=== PATIENT | female | born 1995 | race Caucasian/White ===

== ENCOUNTER → 2017-06-21 | Outpatient (CLI) | payer OTHER ==
[~2017-06-21] MED LIST: AMOX500 PO; BUSP5 PO; CEPH500 PO; CODACEE120 PO; CRUTCH4 USE; IBUP600 PO; METPHE5 PO; MULVITMINE PO; Macrobid 100 M100 MG PO; NAPR500 PO; OXYACE5T PO; PENVK250 PO; PROM25 PO; PSYL5.85P PO; Percocet 5-3251 EACH PO; RXCODACESY PO; Sprintec1 EACH; TRAM50 PO; Veetids 500500 MG PO; Verotin-Gr Cap1 EACH PO; Zofran Odt8 MG SL; [UNRECOGNIZED DRUG - REMARK]
[2017-06-21 15:18] LABS: Specimen Source URIN
[2017-06-21 21:03] LABS: G. vaginalis (DNA Probe) Positive (NEGATIVE); T. vaginalis (DNA Probe) Negative (NEGATIVE)
[2017-06-21 21:04] LABS: Candida species (DNA Probe) Positive (NEGATIVE)
[2017-06-22 12:31] LABS: Source URIN
== END | disposition home or self-care (01) ==
LOC: LAB 13:30 → LAB SHORT 13:30
PROVIDERS: Physician Assistant
DX: Z11.3 Encounter for screening for infections with a predominantly sexual mode of transmission (principal); L29.8 Other pruritus
CPT/HCPCS: 87480; 87491; 87510; 87591; 87660

== ENCOUNTER → 2017-09-05 | Outpatient (CLI) | payer OTHER ==
[2017-09-08 02:17] LABS: CHLAMYDIA TRACHOMATIS, NAA Negative (Negative); NEISSERIA GONORRHOEAE, NAA Negative (Negative)
== END | disposition home or self-care (01) ==
LOC: LAB SHORT 16:17 → OLS 16:17
PROVIDERS: Nurse Practitioner Women's Health
DX: Z11.3 Encounter for screening for infections with a predominantly sexual mode of transmission (principal); Z12.4 Encounter for screening for malignant neoplasm of cervix
CPT/HCPCS: 87491; 87591; 87624; G0123

== ENCOUNTER → 2017-10-05 | Outpatient (CLI) | payer BC ==
[2017-10-05 13:37] LABS: BASOPHILS ABSOLUTE AUTO 0.04 K/mm3 (0.00-0.23); BASOPHILS PERCENT AUTO 1 % (0-2); EOSINOPHILS ABSOLUTE AUTO 0.34 K/mm3 (0.00-0.68); EOSINOPHILS PERCENT AUTO 5 % (0-6); Hematocrit 38.9 % (33.0-51.0); Hemoglobin 13.3 g/dL (11.5-16.0); IMMATURE GRAN ABSOLUTE AUTO 0.02 K/mm3 (0.00-0.10); IMMATURE GRAN PERCENT AUTO 0 % (0-1); LYMPHOCYTES ABSOLUTE AUTO 2.17 K/mm3 (0.84-5.20); LYMPHOCYTES PERCENT AUTO 30 % (21-46); MONOCYTES ABSOLUTE AUTO 0.49 K/mm3 (0.16-1.47); MONOCYTES PERCENT AUTO 7 % (4-13); Mean Corpuscular HGB 31.1 pg (26.0-34.0); Mean Corpuscular HGB Conc 34.2 g/dL (31.5-36.5); Mean Corpuscular Volume 91 fL (80-100); Mean Platelet Volume 12.2 fL (9.1-12.4); NEUTROPHILS ABSOLUTE AUTO 4.25 K/mm3 (1.96-9.15); NEUTROPHILS PERCENT AUTO 58 % (41-73); Platelet Count 192 K/mm3 (150-400); RDW Coefficient Variation 12.2 % (11.7-14.2); RDW Standard Deviation 40.4 fL (35.1-46.3); Red Blood Cell Count 4.27 M/mm3 (3.80-5.20); White Blood Cell Count 7.31 K/mm3 (4.00-11.30)
[2017-10-05 14:05] LABS: Alanine Aminotransfer (ALT/SGP 23 U/L (12-78); Albumin/Globulin Ratio 1.1 (0.8-1.8); Alk Phos 77 U/L (50-136); Anion Gap 7 mmol/L (6-16); Aspartate Aminotrans (AST/SGOT 18 U/L (12-37); Bilirubin, Total 0.8 mg/dL (0.1-1.0); Blood Urea Nitrogen 12 mg/dL (8-24); Bun/Creatinine Ratio 15.5 (12.0-20.0); CO2, Blood 25 mmol/L (21-32); Calcium, Blood 9.1 mg/dL (8.5-10.1); Chloride, Blood 109 mmol/L (98-108); Creatinine, Blood 0.77 mg/dL (0.40-1.00); Globulin, Blood 3.7 g/dL (2.2-4.0); Glomerular Filtration Rate >60 (60-); Glucose, Blood 87 mg/dL (70-99); Potassium, Blood 4.1 mmol/L (3.5-5.5); Sodium, Blood 141 mmol/L (136-145); Total Protein, Blood 7.7 g/dL (6.4-8.2)
[2017-10-06 08:52] LABS: Adenovirus F 40/41 Not Detected (NOT DETECT); Astrovirus Not Detected (NOT DETECT); Campylobacter Sp Not Detected (NOT DETECT); Cryptosporidium Not Detected (NOT DETECT); Cyclospora Cayetanensis Not Detected (NOT DETECT); E. Coli O157 Not Detected (NOT DETECT); Entamoeba Histolytica Not Detected (NOT DETECT); Enteroaggregative E. coli-EAEC Not Detected (NOT DETECT); Enteropathogenic E. coli-EPEC Not Detected (NOT DETECT); Enterotoxigenic E. coli-ETEC Not Detected (NOT DETECT); Giardia Lamblia Not Detected (NOT DETECT); Norovirus GI/GII Not Detected (NOT DETECT); Plesiomonas Shigelloides Not Detected (NOT DETECT); Rotavirus A Not Detected (NOT DETECT); Salmonella Sp Not Detected (NOT DETECT); Sapovirus Not Detected (NOT DETECT); Shiga Toxin-prod E. coli-STEC Not Detected (NOT DETECT); Shigella/Enteroin E. coli-EIEC Not Detected (NOT DETECT); Vibrio Cholerae Not Detected (NOT DETECT); Vibrio Sp Not Detected (NOT DETECT); Yersinia Enterocolitica Not Detected (NOT DETECT)
== END ==
LOC: LAB 12:30 → LAB SHORT 12:30
PROVIDERS: Family Medicine
DX: R19.7 Diarrhea, unspecified (principal)
CPT/HCPCS: 80053; 85025; 85651; 87507

== ENCOUNTER → 2018-03-27 | Outpatient (CLI) | payer SELFPAY ==
[2018-03-30 03:11] LABS: CHLAMYDIA TRACHOMATIS, NAA Positive (Negative); NEISSERIA GONORRHOEAE, NAA Negative (Negative)
== END | disposition home or self-care (01) ==
LOC: LAB 18:03 → LAB SHORT 18:03
PROVIDERS: Nurse Practitioner Women's Health
DX: Z11.3 Encounter for screening for infections with a predominantly sexual mode of transmission (principal); N89.8 Other specified noninflammatory disorders of vagina
CPT/HCPCS: 87070; 87205; 87491; 87591

== ENCOUNTER → 2018-07-13 | Outpatient (CLI) | payer OTHER ==
[2018-07-15 03:09] LABS: CHLAMYDIA TRACHOMATIS, NAA Positive (Negative); NEISSERIA GONORRHOEAE, NAA Negative (Negative)
== END | disposition home or self-care (01) ==
LOC: LAB SHORT 12:47 → LAB 12:47
PROVIDERS: Nurse Practitioner Women's Health
DX: A56.09 Other chlamydial infection of lower genitourinary tract (principal)
CPT/HCPCS: 87491; 87591

== ENCOUNTER → 2018-10-19 | Outpatient (CLI) | payer OTHER ==
[2018-10-21 01:06] LABS: CHLAMYDIA TRACHOMATIS, NAA Negative (Negative); NEISSERIA GONORRHOEAE, NAA Negative (Negative)
== END | disposition home or self-care (01) ==
LOC: LAB SHORT 14:21 → LAB 14:21
PROVIDERS: Obstetrics & Gynecology
DX: Z11.3 Encounter for screening for infections with a predominantly sexual mode of transmission (principal)
CPT/HCPCS: 87491; 87591

== ENCOUNTER 2018-11-13 08:06 | Emergency (ER) | payer OTHER ==
[~2018-11-13] VITALS: Ht 162.6 cm; Wt 71.2 kg
[2018-11-13 09:45] LABS: Calcium, Ionized (POC) 1.18 mmol/L (1.10-1.46); Chloride (POC) 107 mmol/L (98-108); Creatinine (POC) 0.4 mg/dL (0.6-1.0); Glucose (ISTAT POC) 71 mg/dL (70-99); Hemoglobin (POC) 12.9 g/dL (12.0-16.0); Potassium (POC) 4.1 mmol/L (3.5-5.5); Sodium (POC) 137 mmol/L (135-148); Total CO2 (POC) 21 mmol/L (21-32)
[2018-11-13 10:10] LABS: Calcium, Ionized (POC) 1.17 mmol/L (1.10-1.46); Chloride (POC) 108 mmol/L (98-108); Creatinine (POC) 0.4 mg/dL (0.6-1.0); Glucose (ISTAT POC) 75 mg/dL (70-99); Hemoglobin (POC) 11.2 g/dL (12.0-16.0); Potassium (POC) 3.7 mmol/L (3.5-5.5); Sodium (POC) 138 mmol/L (135-148); Total CO2 (POC) 20 mmol/L (21-32)
== END 2018-11-13 10:38 | disposition home or self-care (01) ==
LOC: ER 08:06
PROVIDERS: Emergency Medicine
DX: O99.89 Other specified diseases and conditions complicating pregnancy, childbirth and the puerperium (principal); R55 Syncope and collapse; O99.342 Other mental disorders complicating pregnancy, second trimester; F32.9 Major depressive disorder, single episode, unspecified; F41.9 Anxiety disorder, unspecified; Z3A.16 16 weeks gestation of pregnancy; Z79.899 Other long term (current) drug therapy
CPT/HCPCS: 36415; 80047; 85014; 93005; 93010; 99284-25

== ENCOUNTER → 2019-04-04 | Outpatient (CLI) | payer OTHER | LOC: LAB 09:40 → LAB SHORT 09:40 | DX: Z34.93 Encounter for supervision of normal pregnancy, unspecified, third trimester (principal) | CPT/HCPCS: 87081; 87653 ==

== ENCOUNTER 2019-04-19 15:54 | Inpatient (IN) | payer OTHER ==
[~2019-04-19] VITALS: Ht 162.6 cm; Wt 83.0 kg
[2019-04-19 11:22] LABS: BASOPHILS ABSOLUTE AUTO 0.02 K/mm3 (0.00-0.23); BASOPHILS PERCENT AUTO 0 % (0-2); EOSINOPHILS ABSOLUTE AUTO 0.07 K/mm3 (0.00-0.68); EOSINOPHILS PERCENT AUTO 1 % (0-6); Hemoglobin 12.1 g/dL (11.5-16.0); IMMATURE GRAN ABSOLUTE AUTO 0.03 K/mm3 (0.00-0.10); IMMATURE GRAN PERCENT AUTO 0 % (0-1); LYMPHOCYTES ABSOLUTE AUTO 1.44 K/mm3 (0.84-5.20); LYMPHOCYTES PERCENT AUTO 19 % (21-46); MONOCYTES ABSOLUTE AUTO 0.34 K/mm3 (0.16-1.47); MONOCYTES PERCENT AUTO 5 % (4-13); Mean Corpuscular HGB 30.9 pg (26.0-34.0); Mean Corpuscular HGB Conc 32.7 g/dL (31.5-36.5); Mean Corpuscular Volume 94 fL (80-100); Mean Platelet Volume 12.5 fL (9.1-12.4); NEUTROPHILS ABSOLUTE AUTO 5.55 K/mm3 (1.96-9.15); NEUTROPHILS PERCENT AUTO 75 % (41-73); Platelet Count 108 K/mm3 (150-400); RDW Coefficient Variation 14.6 % (11.7-14.2); RDW Standard Deviation 50.5 fL (35.1-46.3); Red Blood Cell Count 3.92 M/mm3 (3.80-5.20); White Blood Cell Count 7.45 K/mm3 (4.00-11.30)
[~2019-04-19 15:54] MED LIST changes: +FERSU300 PO; +OMEP20ER PO
--- NOTE | 2019-04-20 11:19 | NUR ---
04/20/19 1119 Blake Howard DELIVERY OF VIABLE FEMALE INFANT AT 1058. CORD BLOOD COLLECTED AND GIVEN TO Gonzalo GANRER RN. SEE ANETHESIA AND SUMMARIES.
--- NOTE | 2019-04-20 12:05 | NUR ---
PT TO PACU FROM OR. PRIMARY FOR BREECH AND LEFT OVARY REMOVED R/T OVARIAN CYST. PT AWAKE, DENIES PAIN. NO COMPLAINTS. FUNDAL MASSAGE- FIRM WITH SCANT LOCHIA. PLACED ON MOM, SKIN TO SKIN AND TO BREASTFEED.
--- NOTE | 2019-04-20 12:46 | NUR ---
[facility]ANA CARE. MEDIPORE C/D/I. LIGHT LOCHIA. PT BF WELL
--- NOTE | 2019-04-20 22:49 | NUR ---
URINE OUTPUT- 150CC EMPTIED FROM CATHETER. UPDATED ROLL HANDLERLOVELY PRUITT ON CONTINUED MINIMAL OUTPUT. PLAN TO ENCOURAGE PT TO DRINK PLENTY OF FLUID. PT UPDATED ON PLAN AND STATES UNDERSTANDING.
[2019-04-21 05:41] LABS: Hematocrit 28.7 % (33.0-51.0); Hemoglobin 9.5 g/dL (11.5-16.0); Mean Corpuscular HGB 30.9 pg (26.0-34.0); Mean Corpuscular HGB Conc 33.1 g/dL (31.5-36.5); Mean Corpuscular Volume 94 fL (80-100); Platelet Count 98 K/mm3 (150-400); RDW Coefficient Variation 14.5 % (11.7-14.2); RDW Standard Deviation 49.3 fL (35.1-46.3); Red Blood Cell Count 3.07 M/mm3 (3.80-5.20); White Blood Cell Count 10.12 K/mm3 (4.00-11.30)
[2019-04-21 05:46] LABS: Mean Platelet Volume 13.1 fL (9.1-12.4)
--- NOTE | 2019-04-22 13:41 | NUR ---
RX SCRIPT RN GAVE RX SCRIPT TO PT. PT SENDING TO FILL PRESCRIPTION.
--- NOTE | 2019-04-22 14:11 | NUR ---
DISCHARG INSTRUCTIONS RN EDUCATED PT ON DISCHARGE INSTRUCTIONS FOR CARE AND CARE. PT VERBALIZED UNDERSTANDING.PT DENIES ANY QUESTIONS OR CONCERNS. RN EDUCATED PT ABOUT FOLLOW UP APT FOR 2-3-20 AT 1300. PT VERBALIZED UNDERSTANDING. PT DENIES ANY NEEDS AT THIS TIME. PT WAITING FOR TO GET BACK WITH CARSEAT TO DISCHARGE FROM UNIT.
--- NOTE | 2019-04-22 15:25 | NUR ---
DISCHARGED PT AND NB DISCHARGED, PT SECURED INFANT IN CARRIER. PT, NB AND AMBULATED OUT OF UNIT WITH ALL BELONGINS AND DISCHARGE INSTRUCTIONS. PT DENIES ANY QUESTIONS OR CONCERNS.
--- NOTE | 2019-04-22 15:28 | NUR ---
RN WALKED OUT OF THE UNIT TO CAR WITH PT, NB AND FOB
== END 2019-04-22 15:20 | disposition home or self-care (01) | DRG 785 ==
LOC: BC 04-20 08:31 → EDBD 04-22 15:20
PROVIDERS: ADMIT Obstetrics & Gynecology
PROC: 0UT10ZZ Resection of Left Ovary, Open Approach (ICD-10-PCS; 2019-04-20)
PROC: 10D00Z1 Extraction of Products of Conception, Low, Open Approach (ICD-10-PCS; principal; 2019-04-20 10:30)
PROC: 0UT60ZZ Resection of Left Fallopian Tube, Open Approach (ICD-10-PCS; 2019-04-20 10:30)
DX: O32.1XX0 Maternal care for breech presentation, not applicable or unspecified (principal); O34.83 Maternal care for other abnormalities of pelvic organs, third trimester; N83.202 Unspecified ovarian cyst, left side; Z3A.39 39 weeks gestation of pregnancy; Z37.0 Single live birth
CPT/HCPCS: 36415; 85025; 85027; 86850; 86900; 86901; 90707; J0690; J1885; J2210; J2370; J2405; J2590; J2765; J3010; J7120

== ENCOUNTER → 2020-02-11 | Outpatient (CLI) | payer OTHER ==
[2020-02-15 08:55] LABS: CHLAMYDIA TRACHOMATIS, NAA Negative (Negative)
== END | disposition home or self-care (01) ==
LOC: LAB 15:30 → LAB SHORT 15:30
PROVIDERS: Obstetrics & Gynecology
DX: Z01.419 Encounter for gynecological examination (general) (routine) without abnormal findings (principal); Z11.3 Encounter for screening for infections with a predominantly sexual mode of transmission
CPT/HCPCS: 87491; 87591; G0123

== ENCOUNTER → 2020-07-11 | Outpatient (CLI) | payer OTHER ==
[2020-07-12 08:32] LABS: G. vaginalis (DNA Probe) Positive (NEGATIVE); T. vaginalis (DNA Probe) Negative (NEGATIVE)
[2020-07-12 08:33] LABS: Candida species (DNA Probe) Negative (NEGATIVE)
== END | disposition home or self-care (01) ==
LOC: LAB SHORT 10:15
PROVIDERS: Obstetrics & Gynecology
DX: N89.8 Other specified noninflammatory disorders of vagina (principal)
CPT/HCPCS: 87480; 87510; 87660

== ENCOUNTER 2020-08-11 07:31 | Inpatient (IN) | payer OTHER ==
[~2020-08-11] VITALS: Ht 162.6 cm; Wt 92.9 kg
[~2020-08-11 07:31] MED LIST changes: +Lantus100 UNIT/1; +ONDA4ODT MM
[2020-08-11 08:00] LABS: BASOPHILS ABSOLUTE AUTO 0.05 K/mm3 (0.00-0.23); BASOPHILS PERCENT AUTO 1 % (0-2); EOSINOPHILS ABSOLUTE AUTO 0.19 K/mm3 (0.00-0.68); EOSINOPHILS PERCENT AUTO 2 % (0-6); Hematocrit 33.2 % (33.0-51.0); Hemoglobin 10.6 g/dL (11.5-16.0); IMMATURE GRAN ABSOLUTE AUTO 0.09 K/mm3 (0.00-0.10); IMMATURE GRAN PERCENT AUTO 1 % (0-1); LYMPHOCYTES ABSOLUTE AUTO 1.93 K/mm3 (0.84-5.20); LYMPHOCYTES PERCENT AUTO 20 % (21-46); MONOCYTES ABSOLUTE AUTO 0.53 K/mm3 (0.16-1.47); MONOCYTES PERCENT AUTO 5 % (4-13); Mean Corpuscular HGB 26.1 pg (26.0-34.0); Mean Corpuscular HGB Conc 31.9 g/dL (31.5-36.5); Mean Corpuscular Volume 82 fL (80-100); NEUTROPHILS ABSOLUTE AUTO 6.98 K/mm3 (1.96-9.15); NEUTROPHILS PERCENT AUTO 72 % (41-73); Platelet Count 114 K/mm3 (150-400); RDW Coefficient Variation 18.8 % (11.7-14.2); RDW Standard Deviation 55.9 fL (35.1-46.3); Red Blood Cell Count 4.06 M/mm3 (3.80-5.20); White Blood Cell Count 9.77 K/mm3 (4.00-11.30)
--- NOTE | 2020-08-11 11:08 | NUR ---
08/11/20 1108 Deborah Gil 1000 DELIVERY TWIN BABY A 2715GM 6#, HEAD 13 INCHES, CHEST 12.2 INCHES, LENGTH 18 INCHES, APGARS 9/9, UMBILICAL CORD BLOOD COLLECTED LABELED BABY A BY Doris GARNER RN, 1001 DELIVERY TWIN BABY B 3485GM 7# 11 OZ, HEAD 13.5 INCHES, CHEST 14.5 INCHES, LENGTH 20 INCHES, 9/9, UMBILICAL CORD BLOOD COLLECTED LABELED BABY B BY Doris GARNER RN, PLACENTA- TWIN A LABELED BY Doris GARNER RN SENT TO PATHOLOGY, TWIN B LABELED ALONG WITH 2 UMBILICAL CORD CLAMPS ON CORD SEGMENT SENT TO PATHOLOGY.
--- NOTE | 2020-08-11 11:25 | NUR ---
SECOND LARGE CLOT EXPRESSED WITH MASSAGE. MD NOTIFIED, ORDER FOR ADDITIONAL DOSE OF METHERGINE IM GIVEN. PITOCIN STARTED AT 500CC/HR. WILL CONTINUE TO MONITOR
--- NOTE | 2020-08-11 13:13 | NUR ---
Assumed care from Bushra Churchill RN
--- NOTE | 2020-08-12 00:29 | NUR ---
PT IS FOUND WITH BED IN THE HIGH POSITION. SHE HAS BEEN ADVISED BY HER PRIMARY RN THAT THIS IS UNSAFE AND BED IS LOWERED FOR SAFETY.
[2020-08-12 05:46] LABS: Hematocrit 24.7 % (33.0-51.0); Hemoglobin 7.8 g/dL (11.5-16.0); Mean Corpuscular HGB 26.2 pg (26.0-34.0); Mean Corpuscular HGB Conc 31.6 g/dL (31.5-36.5); Mean Corpuscular Volume 83 fL (80-100); Platelet Count 81 K/mm3 (150-400); RDW Coefficient Variation 18.9 % (11.7-14.2); RDW Standard Deviation 56.3 fL (35.1-46.3); Red Blood Cell Count 2.98 M/mm3 (3.80-5.20); White Blood Cell Count 9.94 K/mm3 (4.00-11.30)
[2020-08-12 06:08] LABS: Anion Gap 6 mmol/L (6-16); Blood Urea Nitrogen 6 mg/dL (8-24); CO2, Blood 21 mmol/L (21-32); Calcium, Blood 7.6 mg/dL (8.5-10.1); Chloride, Blood 111 mmol/L (98-108); Creatinine, Blood 0.67 mg/dL (0.40-1.00); Glomerular Filtration Rate >60 (60-); Glucose, Blood 73 mg/dL (70-99); Potassium, Blood 3.8 mmol/L (3.5-5.5); Sodium, Blood 138 mmol/L (136-145)
--- NOTE | 2020-08-12 10:39 | NUR ---
INCISION SITE COVERED. SOME OLD DRAINAGE. WILL REMOVE WITH SHOWER.
--- NOTE | 2020-08-12 11:07 | NUR ---
VOIDED IN SHOWER, DRESSING OFF SITE WNL
--- NOTE | 2020-08-12 11:16 | NUR ---
agree with student assessment with student entire time
--- NOTE | 2020-08-12 17:06 | NUR ---
AGREE WITH STUDENT CARE, WITH BENITA DAY ENTIRE SHIFT
--- NOTE | 2020-08-12 18:24 | NUR ---
AGREE WITH SHAY STUDENT NURSE ASSESSMENT AND CARE FOR THE DAY WITH HER FOR ENTIRE SHIFT
[2020-08-13] MEDS ORDERED: OXYC5 PO (11:06)
[2020-08-13] MEDS ORDERED: IBUP800 PO (11:06)
== END 2020-08-13 13:10 | disposition home or self-care (01) | DRG 785 ==
LOC: BC 07:31
PROVIDERS: Obstetrics & Gynecology; ADMIT Obstetrics & Gynecology
PROC: 10D00Z1 Extraction of Products of Conception, Low, Open Approach (ICD-10-PCS; principal; 2020-08-11 09:30)
PROC: 0UB50ZZ Excision of Right Fallopian Tube, Open Approach (ICD-10-PCS; 2020-08-11 09:30)
DX: O32.1XX1 Maternal care for breech presentation, fetus 1 (principal); O34.211 Maternal care for low transverse scar from previous cesarean delivery; O30.043 Twin pregnancy, dichorionic/diamniotic, third trimester; O24.424 Gestational diabetes mellitus in childbirth, insulin controlled; K43.9 Ventral hernia without obstruction or gangrene; O99.62 Diseases of the digestive system complicating childbirth; Z3A.37 37 weeks gestation of pregnancy; Z30.2 Encounter for sterilization; Z37.0 Single live birth; Z37.2 Twins, both liveborn
CPT/HCPCS: 36415; 80048; 82947; 85025; 85027; 86850; 86900; 86901; 88302; 88307; A9270; J0690; J1885; J2210; J2370; J2405; J2590; J2765; J3010; J7120; J7121

== ENCOUNTER 2022-08-23 09:41 | Day surgery (SDC) | payer OTHER ==
[~2022-08-23] VITALS: Ht 162.6 cm; Wt 62.2 kg
[2022-08-23] VITALS (14 sets, daily range): BP systolic 114–130; BP diastolic 73–96
[~2022-08-23 09:41] MED LIST changes: +ALBU90OI INH; +AMPDEX30CR PO; +BUTALB-CAFF-AC1 EACH PO; +CELECOXIB PO; +DICL75ER PO; +GABA300 PO; +IBUP800 PO; +LAMOTRIGINE25 M3 PO; +ONDA4 PO; +OXYC5 PO; +TIZANIDINE HCL211 PO; +TRAMADOL PO
--- NOTE | 2022-08-23 10:47 | NUR ---
History, Chart, Medications and Allergies reviewed before start of procedure. Lungs clear T/O to Auscultation. Patient confirms NPO status and agrees with scheduled surgery. Pre-Op teaching done. Pt verbalizes understanding. Patient reports completing Chlorhexadine shower X2 prior to admission to hospital.
--- NOTE | 2022-08-23 14:17 | NUR ---
ARRIVAL TO UNIT PT TRANSFERRED TO UNIT VIA GURNEY. S/P ROBOTIC TOTAL LAP HYSTER, POD 0. VSS. AOX4. LUNGS CLEAR T/O UPON AUSCULTATION, ON RM AIR. REPORTS PAIN 6/10 & NAUSEA, PLAN IS TO MEDICATE PER EMAR. X4 LAP SITES W/ EXOFIN ADHESIVE, C/D/I. NO VAGINAL BLEEDING ASSESSED. K PAD APPLIED TO LOWER ABD. SPOUSE AT BEDSIDE. ORIENTED TO RM, CALL LIGHT WITHIN REACH.
--- NOTE | 2022-08-23 17:50 | NUR ---
SHIFT SUMMARY S/P ROBOTIC TOTAL HYSTER, POD 0. VSS. AOX4. X4 LAP SITES C/D/I. POSTOP NAUSEA MANAGED PER EMAR, TOLERATING SMALL AMNT OF PO INTAKE. REPORTS ABD PAIN IS TOLERABLE W/ ORDERED MEDICATION. VOIDING. UP W/ SBA. PT EXPRESSING DESIRE TO DC HOME TONIGHT, DR. YOUNG NOTIFIED. SPOUSE AT BEDSIDE T/O. NO NEEDS AT THIS TIME, WILL REPORT TO ONCOMING RN.
--- NOTE | 2022-08-23 18:33 | NUR ---
REVIEWED SN DOCUMENTATION.
--- NOTE | 2022-08-23 20:36 | NUR ---
DISCHARGE SUMMARY: PT ASSISTED TO CAR BY [employer] SALESPERSON PUSHING WC; SPOUSE TO DRIVE. PT REP PAIN MGD W/PO PAIN MEDS, DENIED N/V, REP FEELING BOWEL ACTIVITY. PT VOIDING URINE W/O DIFFICULTY. ALANA PAD W/SCANT SS DRNG, PT PROVIDED W/EXTRA PADS FOR DC. INCISIONS CDI, ABD SOFT TO PALP. PT AND REP HE PREV PICKED UP PAIN MED SCRIPTS THIS AFTERNOON. DC INSTRUCTIONS REV W/PT AND SPOUSE, QUESTIONS ANSWERED. WRITTEN INFO SENT W/PT. NO S/SX DISTRESS NOTED AT TIME OF DC.
== END 2022-08-23 20:41 | disposition home or self-care (01) ==
LOC: ORSCMMR 09:41 → ORD 11:00 → SURS 14:17 → ORSCMMR 20:41
PROVIDERS: Obstetrics & Gynecology
PROC: 0U5F4ZZ Destruction of Cul-de-sac, Percutaneous Endoscopic Approach (ICD-10-PCS; principal; 2022-08-23 11:00)
PROC: 0UT94ZZ Resection of Uterus, Percutaneous Endoscopic Approach (ICD-10-PCS; principal; 2022-08-23 11:00)
DX: N92.0 Excessive and frequent menstruation with regular cycle (principal); N80.329 Endometriosis of the posterior cul-de-sac, unspecified depth; N94.6 Dysmenorrhea, unspecified; N73.6 Female pelvic peritoneal adhesions (postinfective); J45.909 Unspecified asthma, uncomplicated; K21.9 Gastro-esophageal reflux disease without esophagitis; Z79.899 Other long term (current) drug therapy
CPT/HCPCS: 58570; 58662; S2900; 36415; 86850; 86900; 86901; 88305; 88307; A9270; J0690; J1100; J1170; J1885; J2250; J2370; J2405; J2704; J2765; J2795; J3010; J7120

== ENCOUNTER → 2022-11-12 | Outpatient (CLI) | payer OTHER | LOC: LAB SHORT 15:00 → PLD 15:00 | DX: D22.71 Melanocytic nevi of right lower limb, including hip (principal); L81.4 Other melanin hyperpigmentation | CPT/HCPCS: 88305 ==

== ENCOUNTER → 2023-06-24 | Outpatient (CLI) | payer OTHER ==
[2023-06-24 11:10] LABS: BASOPHILS ABSOLUTE AUTO 0.07 K/mm3 (0.00-0.23); BASOPHILS PERCENT AUTO 1 % (0-2); EOSINOPHILS ABSOLUTE AUTO 0.12 K/mm3 (0.00-0.68); EOSINOPHILS PERCENT AUTO 2 % (0-6); Hematocrit 39.3 % (33.0-51.0); Hemoglobin 13.5 g/dL (11.5-16.0); IMMATURE GRAN ABSOLUTE AUTO 0.01 K/mm3 (0.00-0.10); IMMATURE GRAN PERCENT AUTO 0 % (0-1); LYMPHOCYTES ABSOLUTE AUTO 2.55 K/mm3 (0.84-5.20); LYMPHOCYTES PERCENT AUTO 32 % (21-46); MONOCYTES ABSOLUTE AUTO 0.56 K/mm3 (0.16-1.47); MONOCYTES PERCENT AUTO 7 % (4-13); Mean Corpuscular HGB 31.4 pg (26.0-34.0); Mean Corpuscular HGB Conc 34.4 g/dL (31.5-36.5); Mean Corpuscular Volume 91 fL (80-100); Mean Platelet Volume 11.6 fL (9.1-12.4); NEUTROPHILS ABSOLUTE AUTO 4.69 K/mm3 (1.96-9.15); NEUTROPHILS PERCENT AUTO 59 % (41-73); Platelet Count 236 K/mm3 (150-400); RDW Coefficient Variation 11.7 % (11.7-14.2); RDW Standard Deviation 38.7 fL (35.1-46.3)
[2023-06-24 14:20] LABS: Albumin, Blood 4.1 g/dL (3.4-5.0); Albumin/Globulin Ratio 1.1 (0.8-1.8); Bilirubin, Total 0.4 mg/dL (0.1-1.0); Bun/Creatinine Ratio 11.4 (12.0-20.0); Calcium, Blood 8.9 mg/dL (8.5-10.1); Creatinine, Blood 0.79 mg/dL (0.40-1.00); Globulin, Blood 3.7 g/dL (2.2-4.0); Potassium, Blood 3.7 mmol/L (3.5-5.5); Thyroid Stimulating Hormone 0.9 uIU/mL (0.360-4.800); Total Protein, Blood 7.8 g/dL (6.4-8.2)
== END | disposition home or self-care (01) ==
LOC: LAB SHORT 11:03 → LAB 11:03
PROVIDERS: Family Medicine
DX: E55.9 Vitamin D deficiency, unspecified (principal); G62.9 Polyneuropathy, unspecified; G25.81 Restless legs syndrome; R53.82 Chronic fatigue, unspecified
CPT/HCPCS: 80053; 82306; 84443; 85025

== ENCOUNTER → 2024-05-31 | Outpatient (CLI) | payer OTHER ==
[2024-05-31 16:28] LABS: BASOPHILS ABSOLUTE AUTO 0.01 K/mm3 (0.00-0.23); BASOPHILS PERCENT AUTO 0 % (0-2); EOSINOPHILS ABSOLUTE AUTO 0.01 K/mm3 (0.00-0.68); EOSINOPHILS PERCENT AUTO 0 % (0-6); Hemoglobin 13.1 g/dL (11.5-16.0); IMMATURE GRAN ABSOLUTE AUTO 0.02 K/mm3 (0.00-0.10); IMMATURE GRAN PERCENT AUTO 0 % (0-1); LYMPHOCYTES PERCENT AUTO 9 % (21-46); MONOCYTES ABSOLUTE AUTO 0.07 K/mm3 (0.16-1.47); MONOCYTES PERCENT AUTO 1 % (4-13); Mean Corpuscular HGB 30.8 pg (26.0-34.0); Mean Corpuscular HGB Conc 33.6 g/dL (31.5-36.5); Mean Corpuscular Volume 92 fL (80-100); Mean Platelet Volume 11.6 fL (9.1-12.4); NEUTROPHILS ABSOLUTE AUTO 7.08 K/mm3 (1.96-9.15); NEUTROPHILS PERCENT AUTO 90 % (41-73); Platelet Count 255 K/mm3 (150-400); Red Blood Cell Count 4.26 M/mm3 (3.80-5.20); White Blood Cell Count 7.89 K/mm3 (4.00-11.30)
[2024-05-31 16:40] LABS: Albumin, Blood 4.2 g/dL (3.4-5.0); Albumin/Globulin Ratio 1.1 (0.8-1.8); Bilirubin, Total 0.4 mg/dL (0.1-1.0); Bun/Creatinine Ratio 9.2 (12.0-20.0); Creatinine, Blood 0.87 mg/dL (0.40-1.00); Globulin, Blood 3.8 g/dL (2.2-4.0)
== END ==
LOC: LAB 16:21 → LAB SHORT 16:21
PROVIDERS: Family Medicine
DX: Z00.00 Encounter for general adult medical examination without abnormal findings (principal); R79.89 Other specified abnormal findings of blood chemistry
CPT/HCPCS: 80053; 82306; 84443; 85025